=== PATIENT | female | born 1995 | race Two or more races ===

== ENCOUNTER 2022-11-26 07:48 | Emergency (ER) | payer MEDICAID, OTHER ==
[~2022-11-26] VITALS: Ht 160 cm; Wt 56.8 kg
[2022-11-26 08:01] VITALS: BP 116/72
[2022-11-26] MEDS ORDERED: LIDOcaine 1% W/epiNEPHrine 1:100,000 20ml vial SQ ONE (09:05)
[2022-11-26] MEDS ORDERED: LIDOCAINE 2%/EPI 1:100,000 inj. Multi-dose 20 ML VIAL SQ ONE ×2 (09:10)
--- NOTE | 2022-11-26 09:32 | NUR ---
PT EXAMINED AND TREATED BY AFSHAN BAUTISTA
[2022-11-26] MEDS ORDERED: HYDR-3965 PO (09:59)
== END 2022-11-26 10:04 | disposition home or self-care (01) ==
LOC: ER 07:49
DX: S60.011A Contusion of right thumb without damage to nail, initial encounter (principal); Z79.899 Other long term (current) drug therapy; W22.8XXA Striking against or struck by other objects, initial encounter; Y93.89 Activity, other specified; Y92.89 Other specified places as the place of occurrence of the external cause; Y99.8 Other external cause status
CPT/HCPCS: 11740; 29130; 73140; 99283; 99284; A6449

== ENCOUNTER 2023-04-13 11:57 | Emergency (ER) | payer MEDICAID ==
[~2023-04-13] VITALS: Ht 162.6 cm; Wt 55.5 kg
[2023-04-13 12:10] VITALS: BP 99/63
[2023-04-13] MEDS ORDERED: TETanus/Pertussis (Acell)/Diphther VAC/PF (Tdap-Adult) 0.5ml syringe IMVAC ONE (13:10)
== END 2023-04-13 14:29 | disposition home or self-care (01) ==
LOC: ER 11:58
DX: S81.011A Laceration without foreign body, right knee, initial encounter (principal); W04.XXXA Fall while being carried or supported by other persons, initial encounter; Y93.89 Activity, other specified; Y92.89 Other specified places as the place of occurrence of the external cause; Y99.8 Other external cause status
CPT/HCPCS: 12001; 73560; 90471; 90715; 99283; A6449